=== PATIENT | female | born 1955 | race Caucasian/White ===

== ENCOUNTER → 2019-02-26 | Outpatient (CLI) | payer OTHER | END | disposition home or self-care (01) | LOC: SONOGRAMA 08:31 | DX: E04.2 Nontoxic multinodular goiter (principal) ==

== ENCOUNTER 2021-11-05 15:00 | Outpatient (CLI) | payer OTHER | END 2021-11-05 15:40 | disposition home or self-care (01) | LOC: ASH CLINIC 15:00 | PROVIDERS: ATTEND Internal Medicine | DX: U07.1 COVID-19 (principal); Z23 Encounter for immunization ==

== ENCOUNTER 2024-01-02 07:57 | Outpatient (CLI) | payer OTHER | END 2024-01-02 07:58 | disposition home or self-care (01) | LOC: SONOGRAMA 07:57 | PROVIDERS: ATTEND Pathology Anatomic Pathology & Clinical Pathology | DX: D34 Benign neoplasm of thyroid gland (principal); E03.9 Hypothyroidism, unspecified ==